=== PATIENT | female | born 1950 | race Caucasian/White ===

== ENCOUNTER 2021-02-28 15:22 | Emergency (ER) | payer OTHER, SELFPAY ==
--- NOTE | 2021-02-28 18:08 | RAD REPORT ---
EXAM DESCRIPTION: CT - Head Brain Wo Cont - 02/28/2021 5:59 pm CLINICAL HISTORY: hypertension;Headache COMPARISON: <Comparisons> TECHNIQUE: Axial 5 mm thick images of the head were obtained without IV contrast. All CT scans are performed using dose optimization technique as appropriate and may include automated exposure control or mA/KV adjustment according to patient size. FINDINGS: No intracranial hemorrhage, mass, edema or shift of mid-line structures. No acute cortical based infarction. No cortical edema or sulcal effacement. Atrophy changes are mild. Minimal chronic ischemic changes are seen. Decreased attenuation in the superior right thalamus is most likely an old lacune or infarction. No abnormal extra-axial fluid collections. Ventricles are in proportion to the amount of volume loss. Patient has dense arterial tree calcifications. Mastoid air cells are clear. Chronic sphenoid and left maxillary sinusitis changes are present. No acute bony findings. IMPRESSION: No hemorrhage, mass or acute intracranial finding identifiable. Atrophy, chronic ischemic change and old lacunar type infarction changes are seen. Chronic left maxillary and left sphenoid sinusitis.
--- NOTE | 2021-02-28 18:18 | EDPHYS ---
Physician Documentation [facility] Name: Kailey Cedillo Age: 70 yrs Sex: Female : 1950 Arrival Date: 02/28/2021 Time: 15:25 Bed 26 Private MD: Haroon Olmos HPI: 02/28 17:40 This 70 yrs old Female presents to ER via Ambulatory with complaints of High cp Blood Pressure. 17:40 The patient has elevated blood pressure and discovered this while at [facility]. cp 17:40 Onset: The symptoms/episode began/occurred today. cp 17:40 Associated signs and symptoms: Pertinent positives: headache, Pertinent negatives: cp chest pain, dizziness, visual changes, weakness. Severity of symptoms: At its worst the blood pressure was 169 mm Hg. 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 - Social history:: Smoking status: Patient reports the use of cigarette tobacco products, smokes one pack cigarettes per day. ROS: 17:45 Constitutional: Negative for body aches, chills, fever, poor PO intake. cp 17:45 Eyes: Negative for injury, pain, redness, and discharge. cp Exam: 17:55 Constitutional: The patient appears in no acute distress, alert, awake, cp non-diaphoretic, non-toxic, well developed, well nourished. 17:55 Head/Face: Normocephalic, atraumatic. cp 17:55 Eyes: Periorbital structures: appear normal, Pupils: equal, round, and reactive to light and accomodation, Extraocular movements: intact throughout, Conjunctiva: normal, no exudate, no injection, Sclera: no appreciated abnormality, Lids and lashes: appear normal, bilaterally. 17:55 ENT: External ear(s): are unremarkable, Nose: is normal, Mouth: Lips: moist, Oral mucosa: moist, Posterior pharynx: Airway: no evidence of obstruction, patent. 17:55 Neck: ROM/movement: is normal, is supple, without pain, no range of motions limitations. 17:55 Chest/axilla: Inspection: normal, Palpation: is normal, no crepitus, no tenderness. 17:55 Cardiovascular: Rate: normal, Rhythm: regular, Edema: is not appreciated, JVD: is not appreciated. 17:55 Respiratory: the patient does not display signs of respiratory distress, Respirations: normal, no use of accessory muscles, no retractions, labored breathing, is not present, Breath sounds: are clear throughout, no decreased breath sounds. 17:55 Abdomen/GI: Inspection: abdomen appears normal, Palpation: abdomen is soft and non-tender, in all quadrants. 17:55 Neuro: Orientation: to person, place \\T\\ time. Mentation: is normal, Cerebellar function: is grossly normal, Motor: moves all fours, strength is normal, Sensation: is normal. Vital Signs: 15:41 BP 123 / 53; ss 15:41 Pulse 61; Resp 16; Temp 98.1(TE); Pulse Ox 98% on R/A; Weight 63.05 kg; Height 5 ft. 9 ss in. (175.26 cm); Pain 0/10; 17:20 BP 148 / 75; Pulse 67; Resp 18; Pulse Ox 100% ; kg 18:00 BP 130 / 68; Pulse 63; Resp 20; Pulse Ox 100% ; kg 15:41 Body Mass Index 20.53 (63.05 kg, 175.26 cm) ss MDM: 17:31 Patient medically screened. cp 18:00 Differential diagnosis: hypertensive crisis, Malignant HTN, CVA, intracerebral cp hemorrhage. 18:16 Data reviewed: vital signs, nurses notes, radiologic studies, CT scan. cp 18:16 Counseling: I had a detailed discussion with the patient and/or guardian regarding: the cp historical points, exam findings, and any diagnostic results supporting the discharge/admit diagnosis, radiology results, to return to the emergency department if symptoms worsen or persist or if there are any questions or concerns that arise at home. ED course: VSS. CT negative for acute findings. Will discharge to home for continued monitoring. 02/28 17:36 Order name: CT Head Brain wo Cont; Complete Time: 18:14 cp 02/28 18:14 Interpretation: Report reviewed. cp Administered Medications: No medications were administered Disposition: 02/28/21 18:17 Discharged to Home. Impression: Hypertensive heart disease. - Condition is Stable. - Discharge Instructions: Hypertension, How to Take Your Blood Pressure, [id number], Managing Your Hypertension. - Medication Reconciliation Form, Thank You Letter, Antibiotic Education, Prescription Opioid Use form. - Follow up: Private Physician; When: 2 - 3 days; Reason: Recheck today's complaints. - Problem is new. - Symptoms have improved. Addendum: 03/02/2021 07:55 Co-signature as Attending Physician, Haroon Lyons MD I agree with the assessment and c lizama plan of care. Signatures: Dispatcher [employer] EDNC Haroon Lyons MD MD cha Smirch, Shelby, RN RN Haroon Pierre PA PA cp Linda Thomas, RN RN kg Corrections: (The following items were deleted from the chart) 02/28 18:34 18:17 02/28/2021 18:17 Discharged to Home. Impression: Hypertensive heart disease. kg Condition is Stable. Forms are Medication Reconciliation Form, Thank You Letter, Antibiotic Education, Prescription Opioid Use. Follow up: Private Physician; When: 2 - 3 days; Reason: Recheck today's complaints. Problem is new. Symptoms have improved. cp 03/01 17:19 02/28 18:50 Constitutional: The patient appears in no acute distress, alert, awake, cp non-diaphoretic, non-toxic, well developed, well nourished, cp
--- NOTE | 2021-02-28 18:18 | ER ---
Nurse's Notes [facility] Name: Kailey Cedillo Age: 70 yrs Sex: Female : 1950 Arrival Date: 02/28/2021 Time: 15:25 Bed 26 Private MD: Diagnosis: Hypertensive heart disease Presentation: 02/28 15:41 Chief complaint: Patient states: 4 High blood pressure readings at [facility] ss 169/???. Pt reports that other than feeling twitchy she feels okay and is just being cautious. Coronavirus screen: Client denies travel out of the [place] in the last 14 days. Ebola Screen: Patient denies exposure to infectious person. Patient denies travel to an Ebola-affected area in the 21 days before illness onset. Initial Sepsis Screen: Does the patient meet any 2 criteria? No. Patient's initial sepsis screen is negative. Does the patient have a suspected source of infection? No. Patient's initial sepsis screen is negative. Risk Assessment: Do you want to hurt yourself or someone else? Patient reports no desire to harm self or others. Onset of symptoms was February 28, 2021. 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 - Social history:: Smoking status: Patient reports the use of cigarette tobacco products, smokes one pack cigarettes per day. Screenin:36 Abuse screen: Denies threats or abuse. Denies injuries from another. Nutritional kg screening: No deficits noted. Tuberculosis screening: No symptoms or risk factors identified. Fall Risk None identified. No fall in past 12 months (0 pts). No secondary diagnosis (0 pts). No IV (0 pts). Ambulatory Aid- None/Bed Rest/Nurse Assist (0 pts). Gait- Normal/Bed Rest/Wheelchair (0 pts) Mental Status- Oriented to own ability (0 pts). Total Gabriel Fall Scale indicates No Risk (0-24 pts). Assessment: 17:28 General: Appears in no apparent distress. Behavior is cooperative, appropriate for age, kg anxious, restless. Pain: Denies pain. Neuro: No deficits noted. Level of Consciousness is awake, alert, obeys commands, Oriented to person, place, time, situation, Appropriate for age. Cardiovascular: No deficits noted. Heart tones S1 S2 Capillary refill < 3 seconds Pulses are 3+ in right radial artery, right dorsalis pedis artery, left radial artery and left dorsalis pedis artery Rhythm is regular. Respiratory: No deficits noted. Airway is patent Trachea midline Respiratory effort is even, unlabored, relaxed, Respiratory pattern is regular, symmetrical, Breath sounds are clear bilaterally. GI: No deficits noted. : No deficits noted. EENT: No deficits noted. Derm: No deficits noted. Musculoskeletal: No deficits noted. Vital Signs: 15:41 BP 123 / 53; ss 15:41 Pulse 61; Resp 16; Temp 98.1(TE); Pulse Ox 98% on R/A; Weight 63.05 kg; Height 5 ft. 9 ss in. (175.26 cm); Pain 0/10; 17:20 BP 148 / 75; Pulse 67; Resp 18; Pulse Ox 100% ; kg 18:00 BP 130 / 68; Pulse 63; Resp 20; Pulse Ox 100% ; kg 15:41 Body Mass Index 20.53 (63.05 kg, 175.26 cm) ss ED Course: 15:25 Patient arrived in ED. ds1 15:46 Triage completed. ss 15:47 Arm band placed on right wrist. ss 17:25 Linda Thomas, CAMELIA is Primary Nurse. kg 17:28 Haroon Pierre PA is PHCP. cp 17:28 Haroon Lyons MD is Attending Physician. cp 17:37 Patient has correct armband on for positive identification. Bed in low position. Call kg light in reach. Side rails up X2. 18:00 CT Head Brain wo Cont In Process Unspecified. EDMS 18:21 No provider procedures requiring assistance completed. Patient did not have IV access kg during this emergency room visit. Administered Medications: No medications were administered Outcome: 18:17 Discharge ordered by . cp 18:34 Discharged to home ambulatory. kg 18:34 Condition: good 18:34 Discharge instructions given to patient, Instructed on discharge instructions, follow up and referral plans. Demonstrated understanding of instructions, follow-up care. 18:34 Patient left the ED. kg Signatures: Dispatcher [employer] EDAZ Graciela Alvarez ds1 Madison De Los Santos RN RN Haroon Felix PA PA cp Graham, Kristen, CAMELIA RN kg
[2021-02-28 18:43] VITALS: TEMP 98.1
[2021-02-28 18:45] VITALS: O2SAT 100
[2021-02-28 18:47] VITALS: BP 130/68
== END 2021-02-28 18:34 | disposition home or self-care (01) ==
LOC: ER 15:22
DX: I11.9 Hypertensive heart disease without heart failure (principal); I10 Essential (primary) hypertension; F17.210 Nicotine dependence, cigarettes, uncomplicated
CPT/HCPCS: 70450; 99283